=== PATIENT | male | born 1975 | race American Indian/Alaskan Native ===

== ENCOUNTER 2017-12-16 22:57 | Emergency (ER) | payer MEDICAID ==
[2017-12-16 23:14] VITALS: BP 116/69; PULSE 65; RESP 20; TEMP 97.4; O2SAT 99
--- NOTE | 2017-12-16 23:28 | C.PDOC ---
History Of Present Illness Patient presents to the ER with a complaint of left back and left chest wall pain for the past 4 days, associated with a burning rash with blisters around T8 distribution. Denies nausea, vomiting, or difficulty breathing. Time Seen by Provider: 12/16/17 23:28 Chief Complaint (Nursing): Abdominal Pain History Per: Patient History/Exam Limitations: no limitations Onset/Duration Of Symptoms: Days Current Symptoms Are (Timing): Still Present Severity: Moderate Pain Scale Rating Of: 5 Location Of Pain/Discomfort: Other (Left back/chest) Radiation Of Pain To:: Back, Chest Quality Of Discomfort: Burning, "Pain" Associated Symptoms: Other (Left back, left chest wall). denies: Fever, Chills , Nausea, Vomiting Exacerbating Factors: None Alleviating Factors: None Recent travel outside of the [place]: No Additional History Per: Patient, Family Past Medical History Reviewed: Historical Data, Nursing Documentation, Vital Signs Vital Signs: Last Vital Signs Temp 97.4 F L 12/16/17 23:10 Pulse 65 12/16/17 23:10 Resp 20 12/16/17 23:10 BP 116/69 12/16/17 23:10 Pulse Ox 99 12/16/17 23:49 Family History: States: No Known Family Hx - Social History Hx Alcohol Use: No Hx Substance Use: No Review Of Systems Constitutional: Negative for: Fever, Chills Cardiovascular: Negative for: Palpitations Respiratory: Negative for: Shortness of Breath Gastrointestinal: Negative for: Nausea, Vomiting Musculoskeletal: Positive for: Back Pain, Other (Chest wall pain) Skin: Positive for: Rash Physical Exam - Physical Exam Appears: Non-toxic Skin: Warm, Dry, Rash (Vesicular from back to T7-8 distribution) Head: Normacephalic Eye(s): bilateral: Normal Inspection Oral Mucosa: Moist Chest: Symmetrical, Other (vesicular rash t7-8 distribution) Cardiovascular: Rhythm Regular Respiratory: No Rales, No Rhonchi, No Wheezing Gastrointestinal/Abdominal: Soft, No Tenderness Back: Other (rash) Neurological/Psych: Oriented x3 Gait: Steady ED Course And Treatment O2 Sat by Pulse Oximetry: 99 (Room air) Pulse Ox Interpretation: Normal Progress Note: Famvir administered, lidoderm applied. Medical Decision Making Medical Decision Making: Upon provider reevaluation patient is feeling better, is medically stable, and requires no further treatment in the ED at this time. Patient will be discharged home with Rx for famcyclovir, percocet and lidoderm patch . Counseling was provided and all questions were answered regarding diagnosis and need for follow up withdr rice. There is agreement to discharge plan. Return if symptoms persist or worsen. Disposition Counseled Patient/Family Regarding: Studies Performed, Diagnosis, Need For Followup, Rx Given - Disposition Referrals: Henok Rice DO [Staff Provider] - Disposition: HOME/ ROUTINE Disposition Time: 23:28 Condition: FAIR Additional Instructions: Please return if symptoms do not improve Prescriptions: Famciclovir 500 mg PO TID #21 tablet Lidocaine 5% [Lidoderm] 1 ea TD Q12H PRN #10 patch PRN Reason: Pain, Moderate (4-7) oxyCODONE/Acetaminophen [Percocet 5/325 mg Tab] 1 tab PO QID PRN #12 tab PRN Reason: Pain, Severe (8-10) Instructions: Shingles (DC) Forms: [employer] (Finnish) - Clinical Impression Clinical Impression: Shingles - Scribe Statement The provider has reviewed the documentation as recorded by the Scribjared Judd All medical record entries made by the Scribe were at my direction and personally dictated by me. I have reviewed the chart and agree that the record accurately reflects my personal performance of the history, physical exam, medical decision making, and the department course for this patient. I have also personally directed, reviewed, and agree with the discharge instructions and disposition.
[2017-12-16] MEDS ORDERED: Lidocaine 5% Patch TD STA (23:45)
[2017-12-16] MEDS ORDERED: Lidocaine 5% Patch TD ONE (23:54)
== END 2017-12-17 00:17 | disposition home or self-care (01) ==
LOC: C.ER 22:57
DX: B02.9 Zoster without complications (principal)